=== PATIENT | female | born 1995 | race Asian ===

== ENCOUNTER 2017-04-11 21:30 | Emergency (ER) | payer SELFPAY ==
[2017-04-11 21:36] VITALS: BP 113/87; PULSE 73; RESP 16; TEMP 98.2; O2SAT 97
--- NOTE | 2017-04-11 22:20 | EDPHY ---
General - History Smoking Status: Never smoked Narrative: CHIEF COMPLAINT: eyelid laceration HISTORY OF PRESENT ILLNESS: Patient complains of right eyelid laceration. She was playing laser tag when she turned and struck her head a wall. No loss of consciousness. No headache. No nausea vomiting. She sustained a laceration to the right upper eyelid. No difficulty with vision. No neck pain or stiffness. No he elsewhere. Tetanus up-to-date. No pain. No other associated complaints or modifying factors. TIME OF INJURY: 30 min prior to arrival TETANUS STATUS: Up-to-date MEDICAL/SURGICAL/SOCIAL HISTORY: Uncomplicated medical history. [employer] student. Originally from [place] REVIEW OF SYSTEMS: Ten systems reviewed and are negative unless otherwise noted in the HPI EXAMINATION General Appearance: Alert, no distress Head: normocephalic, eyelid laceration as below. ENT: Pupils equal round reactive. No hyphema. No subconjunctival hemorrhage. 2 cm superficial laceration to the right eyelid. No bleeding. No foreign body. Visual malloy intact by confrontation. Cardiovascular: Pulses normal throughout. Brisk cap refill Neurological: GCS 15. A&O, cranial nerves 2 through grossly intact. strength is symmetric in all 4 limbs. No pronator drift. Skin: Warm and dry, no rash. Eyelid laceration as above. Extremities: Nontender, no pedal edema DIFFERENTIAL DIAGNOSES: Including but not limited to eyelid laceration, eye trauma MDM: 9:45 p.m. Superficial laceration of the right eyelid. No trauma to the eye. No exposure of the tarsal plate. No foreign body. Visual malloy are normal by confrontation. Visual acuity is pending. Tetanus is up-to-date. Wound anesthetized. 9:50 p.m. Visual acuity not performed as the patient does not have her glasses with her. 10:20 p.m. Right eyelid laceration with complication. Tolerated well. Attention was paid to avoid suturing through the tarsal plate. Symmetric range of motion of the eyelids and eyebrows postprocedure. Wound care discussed. Return to emergency department in 5-7 days for suture removal. ED precautions discussed the she is comfortable this plan and discharged home stable condition. PROCEDURE: Laceration repair Consent: Verbal Location: Right eyelid Length of repair: 2 cm Complexity: Complex located Layer involvement: Single Anesthesia: Local. 1% lidocaine plain. 5 mL Irrigation: Extensive Debridement: None Procedure description: Following good anesthesia, the wound was copiously irrigated. Wound bed was explored with a sterile glove, and there is no foreign body noted. No injury to the tarsal plate. No foreign body. Lid everted without injury to the inner eyelid. Wound borders were approximated well with good hemostasis. Tolerated well without complication. Suture/Staple material: 7-0 Prolene, 2 simple interrupted sutures Wound care: Routine as discussed Suture/Staple removal: 5-7 Days SUPERVISION: This patient was independently evaluated without direct involvement of or examination by the attending physician. ED Precautions: Worsening pain. Erythema, edema, cyanosis, pallor, paresthesia or anesthesia. (Jose A Schneider) Medical Decision Making: I did not see this patient while she was in the emergency department. However her care was discussed with the PA while the patient was in the department. I agree with treatment plan and management (Jameson Landeros) - Objective Vital Signs: Initial Vital Signs Temperature (C) 36.8 C 04/11/17 21:32 Heart Rate 73 04/11/17 21:32 Respiratory Rate 16 04/11/17 21:32 Blood Pressure 113/87 H 04/11/17 21:32 O2 Sat (%) 97 04/11/17 21:32 O2 Delivery Mode Room Air Allergies/Adverse Reactions: No Known Allergies Allergy (Unverified 04/11/17 21:36) Home Medications: Medication Instructions Recorded NK [No Known Home Meds] 04/11/17 Departure - Departure Disposition: Home, Routine, Self-Care Clinical Impression: Eyelid laceration, right Condition: Good Instructions: Laceration (ED), Facial Laceration (ED) Additional Instructions: 1. Daily wound care as discussed 2. ED precautions for signs of infection 3. Return to emergency department in 5-7 days for suture removed Referrals: [facility]ATR[facility],. [Clinic] - As per Instructions Physician,Emergency Dept, MD [Medical Doctor] - As per Instructions (5-7 days suture removal) Print Language: [place] MEDIAarin
== END 2017-04-11 22:28 | disposition home or self-care (01) ==
PROC: 08QNXZZ Repair Right Upper Eyelid, External Approach (ICD-10-PCS; principal; 2017-04-11)
DX: S01.111A Laceration without foreign body of right eyelid and periocular area, initial encounter (principal); W22.01XA Walked into wall, initial encounter; Y93.89 Activity, other specified